=== PATIENT | female | born 1955 | race American Indian/Alaskan Native ===

== ENCOUNTER 2016-05-06 13:38 | Outpatient (CLI) | payer BC ==
--- NOTE | 2016-05-07 10:59 | Mammography Report ---
BILATERAL DIGITAL SCREENING MAMMOGRAM with CAD: 05/06/16 CLINICAL: Routine screening. COMPARISON: 05/02/15 and 04/25/13 FINDINGS: There are bilateral scattered areas of fibroglandular density.No mass, architectural distortion or suspicious calcifications. IMPRESSION: No mammographic evidence of malignancy. BI-RADS CATEGORY: 1 -- Negative RECOMMENDATION: Routine mammographic screening in one year. COMMENT: Patient follow-up letters are generated by our Instant [employer] application.
== END 2016-05-06 13:39 | disposition home or self-care (01) ==
LOC: SPVWC 13:38
PROVIDERS: ATTEND Internal Medicine
DX: Z12.31 Encounter for screening mammogram for malignant neoplasm of breast (principal)
CPT/HCPCS: 77067; G0202

== ENCOUNTER 2020-07-02 12:32 | Outpatient (CLI) | payer MEDICARE ==
--- NOTE | 2020-07-03 17:05 | Mammography Report ---
DIGITAL SCREENING MAMMOGRAM WITH CAD, 07/03/2020 CLINICAL INFORMATION / INDICATION: Routine screening mammography. SCREENING MAMMO TECHNIQUE: Digital bilateral 2D mammography was obtained in the craniocaudal and mediolateral obliqu e projections. This examination was interpreted with the benefit of Computer-Aided Detection analysis . COMPARISON: 04/25/2013 through 05/06/2016. FINDINGS: Breast Density: There are scattered areas of fibroglandular density. No dominant mass, suspicious calcifications, or architectural distortion in either breast. Benign-appearing nodule in the left upper outer quadrant is stable. No new abnormality is seen. IMPRESSION: No mammographic evidence of malignancy. Follow up recommendation: Routine yearly BI-RADS Category 2: Benign. A "normal" or negative report should not discourage follow up or biopsy of a clinically significant f inding. A written summary of these findings will be mailed to the patient. The patient will be entered into a mammography reporting system which will generate a reminder letter for the patient's next appointmen t at the appropriate interval. [employer] recommends yearly mammograms starting at age 40 and continuing as l roly as a woman is in good health. Breast MRI is recommended for women with an approximate 20-25% or greater lifetime risk of breast cancer, including women with a strong family history of breast or ova varun cancer or who have been treated for Hodgkin's disease. Signer Name: Jose Salazar MD Signed: 07/03/2020 5:01 PM Workstation Name: [id number]
== END 2020-07-02 12:33 | disposition home or self-care (01) ==
LOC: SPVWC 12:32
PROVIDERS: ATTEND Internal Medicine
DX: Z12.31 Encounter for screening mammogram for malignant neoplasm of breast (principal); N63.21 Unspecified lump in the left breast, upper outer quadrant
CPT/HCPCS: 77067